=== PATIENT | male | born 1940 | race Caucasian/White ===

== ENCOUNTER 2017-09-02 09:01 | Emergency (ER) | payer MEDICARE, MEDICAID ==
[2017-09-02 09:25] VITALS: BP 135/67
--- NOTE | 2017-09-02 09:43 | UC ---
Respiratory Complaint HPI - HPI Summary HPI Summary: Patient has been treated for a Upper respiratory incfection for the past 10 days , but cough is worse, head congestion is worse , he remains afebrile but very SOB. - History of Current Complaint Chief Complaint: UCRespiratory Stated Complaint: COUGH,RESPIRATORY Time Seen by Provider: 09/02/17 09:15 Hx Obtained From: Patient Onset/Duration: Sudden Onset, Lasting Weeks - 2 Timing: Constant Severity Initially: Mild Severity Currently: Moderate Pain Intensity: 3 Character: Cough: Productive Aggravating Factors: Exertion, Deep Breaths, Recumbent Position Alleviating Factors: Nothing Associated Signs And Symptoms: Positive: Dyspnea, Wheezing, URI, Nasal Congestion, Sinus Discomfort - Risk Factors Pulmonary Embolism Risk Factors: Negative Cardiac Risk Factors: CAD Pseudomonas Risk Factors: Negative Tuberculosis Risk Factors: Negative - Allergies/Home Medications Allergies/Adverse Reactions: Allergies Allergy/AdvReac Type Severity Reaction Status Date / Time No Known Allergies Allergy Verified 09/02/17 09:25 Home Medications: Home Medications Albuterol 2.5MG/3ML (0.083%)* [Ventolin 2.5 MG/3 ML NEB.DOM*] 2.5 mg INH Q4H PRN 09/02/17 [History Confirmed 09/02/17] Benzonatate CAP* [Tessalon 100 MG CAP*] 100 mg PO TID 09/02/17 [History Confirmed 09/02/17] Cephalexin CAP* [Keflex CAP*] 500 mg PO QID 09/02/17 [History Confirmed 09/02/17 ] Ybudvbuaptcic-Paggdriccpe-Vs [Theraflu Cold & Cough] 1 liq PO Q8HR PRN 09/02/17 [History Confirmed 09/02/17] predniSONE TAB* [Deltasone TAB*] 20 mg PO Q8HR 09/02/17 [History Confirmed 09/02] PMH/Surg Hx/FS Hx/Imm Hx Previously Healthy: Yes Other History Of: Negative For: Anticoagulant Therapy - Surgical History Surgical History: Yes Surgery Procedure, Year, and Place: mitral valve repair - Family History Known Family History: Positive: Cardiac Disease - Social History Alcohol Use: Occasionally Substance Use Type: None Smoking Status (MU): Former Smoker Amount Used/How Often: 1ppd Length of Time of Smoking/Using Tobacco: 15 yrs When Did the Patient Quit Smoking/Using Tobacco: 1969 Review of Systems Constitutional: Chills, Fatigue Skin: Negative Eyes: Negative ENT: Sore Throat, Ear Ache, Nasal Discharge, Sinus Pain/Tenderness Respiratory: Shortness Of Breath, Cough Cardiovascular: Negative Gastrointestinal: Negative Genitourinary: Negative Motor: Negative Neurovascular: Negative Musculoskeletal: Myalgia Neurological: Headache Psychological: Negative Is Patient Immunocompromised?: No All Other Systems Reviewed And Are Negative: Yes Physical Exam Triage Information Reviewed: Yes Appearance: Well-Nourished, Ill-Appearing, Pain Distress Vital Signs: Initial Vital Signs Temp 98.6 F 09/02/17 09:14 Pulse 87 09/02/17 09:14 Resp 16 09/02/17 09:14 BP 135/67 09/02/17 09:14 Pulse Ox 99 09/02/17 09:14 Vital Signs Reviewed: Yes Eye Exam: Normal Eyes: Positive: Conjunctiva Inflamed ENT: Positive: Pharyngeal erythema, Nasal congestion, TMs normal, Sinus tenderness Dental Exam: Normal Neck exam: Normal Neck: Positive: Supple, Nontender, No Lymphadenopathy Respiratory: Positive: Normal breath sounds, No respiratory distress, Crackles, Rhonchi, Stridor, Inspiration Cardiovascular Exam: Normal Cardiovascular: Positive: RRR, No Murmur, Pulses Normal Abdominal Exam: Normal Abdomen Description: Positive: Nontender, No Organomegaly, Soft Bowel Sounds: Positive: Present Musculoskeletal Exam: Normal Musculoskeletal: Positive: Strength Intact, ROM Intact, No Edema Neurological Exam: Normal Neurological: Positive: Alert, Muscle Tone Normal Psychological Exam: Normal Skin Exam: Normal UC Diagnostic Evaluation - Laboratory O2 Sat by Pulse Oximetry: 99 - Radiology Xray Interpretation: No Acute Changes Radiology Interpretation Completed By: Radiologist Respiratory Course/Dx - Course Course Of Treatment: hx obtained, exam performed ,meds reviewed, chest xray obtained, negative for pneumonia - Differential Dx/Diagnosis Differential Diagnosis/HQI/PQRI: Bronchitis, CHF, Lower Resp Infection, Sinusitis Provider Diagnoses: bronchitis. SOB. Heasache Discharge - Discharge Plan Condition: Stable Disposition: HOME Patient Education Materials: Acute Bronchitis (ED) Referrals: Vern Alba MD [Primary Care Provider] - Additional Instructions: 1. Your chest xray was negative for pnuemonia 2. I have increased your dose of prednisone, due to the wheezing and coughing, take per directions on the bottle 3. I have also prescribed Albuterol I would like you to use it 3 times a day for the next 3 days and then every 4 hours as needed. 4. Continue with tylenol for pain or fever 5. Warm compresses to sinuses if you continue to have sinus pressure. 6. FOllow up with any increased shortness of breath or you develop a fever.
[2017-09-02] MEDS ORDERED: Albuterol/Ipratropium NEB.SOL* Albuterol 2.5 MG/Ipratropium 0.5 MG 3 ML INH ONE (09:52)
--- NOTE | 2017-09-02 09:54 | RAD ---
INDICATION: Cough. Short of breath COMPARISON: July 31, 2012 TECHNIQUE: PA and lateral dual-energy views were obtained. FINDINGS: Bones/Soft Tissues: There is interval sternotomy with mitral valve surgery. Cardiomediastinal: The cardiomediastinal silhouette is normal. Lungs: There are no infiltrates. Pleura: There are no pleural effusions. Other: None IMPRESSION: POSTOPERATIVE CHANGE. NO ACTIVE DISEASE.
== END 2017-09-02 10:29 | disposition home or self-care (01) ==
LOC: UCCORT 09:01
DX: J40 Bronchitis, not specified as acute or chronic (principal); R06.02 Shortness of breath; R51 Headache; Z87.891 Personal history of nicotine dependence
CPT/HCPCS: 71046; 99212; A9270-GY; G0463

== ENCOUNTER 2017-10-06 07:48 | Emergency (ER) | payer MEDICARE, MEDICAID ==
[2017-10-06 08:30] LABS: Urine Appearance Clear; Urine Blood Negative (Negative); Urine Color Yellow; Urine Ketones Negative (Negative); Urine Protein Negative (Negative); Urine Specific Gravity 1.015 (1.010-1.030); Urine Urobilinogen Negative (Negative)
[2017-10-06] MEDS ORDERED: Phenazopyridine TAB* 100 MG PO ONE (08:53)
[2017-10-06 09:18] VITALS: BP 119/79
--- NOTE | 2017-10-06 11:01 | ED ---
Brennan Douglas Stephanie, scribed for Rahul Briceno MD on 10/06/17 at 0850 . GI/ HPI - HPI Summary HPI Summary: The pt is a 77 y/o M presenting to the ED with c/o penile burning while using self-catheter that began at 19:00 on 10/05/17. The pt states the penile burning is constant but is worse with self-catheterization. The pt states a hx of UTI. He states he used 1 dose of Bactrim yesterday. - History of Current Complaint Chief Complaint: EDUrogenitalProblems Time Seen by Provider: 10/06/17 08:48 Stated Complaint: UTI-LIKE SYMPTOMS Hx Obtained From: Patient Onset/Duration: Started Days Ago - 1, Still Present Timing: Constant Current Severity: Moderate Pain Intensity: 5 Location of Pain: Other - penile Pain Characteristics: Burning Aggravating Factor(s): Nothing Alleviating Factor(s): Nothing - Allergy/Home Medications Allergies/Adverse Reactions: Allergies Allergy/AdvReac Type Severity Reaction Status Date / Time No Known Allergies Allergy Verified 10/06/17 07:53 PMH/Surg Hx/FS Hx/Imm Hx Endocrine/Hematology History: Denies: Hx Anticoagulant Therapy, Hx Diabetes, Hx Thyroid Disease Cardiovascular History: Denies: Hx Hypertension, Hx Pacemaker/ICD Respiratory History: Denies: Hx Asthma, Hx Chronic Obstructive Pulmonary Disease (COPD) History: Denies: Hx Renal Disease Neurological History: Denies: Hx Dementia, Hx Seizures Psychiatric History: Denies: Hx Substance Abuse - Surgical History Surgery Procedure, Year, and Place: mitral valve repair Infectious Disease History: No Infectious Disease History: Reports: Hx Hepatitis - Hep B 1988 Denies: Hx Human Immunodeficiency Virus (HIV), History Other Infectious Disease, Traveled Outside the [place] in Last 30 Days - Family History Known Family History: Positive: Cardiac Disease - Social History Occupation: Retired Lives: With Family Alcohol Use: Occasionally Substance Use Type: Reports: None Smoking Status (MU): Former Smoker Amount Used/How Often: 1ppd Length of Time of Smoking/Using Tobacco: 15 yrs Review of Systems Negative: Fever Positive: burning - penile All Other Systems Reviewed And Are Negative: Yes Physical Exam - Summary Physical Exam Summary: Appearance: The patient is well-nourished in no acute distress and in no acute pain. Skin: The skin is warm and dry and skin color reflects adequate perfusion. HEENT: The head is normocephalic and atraumatic. The pupils are equal and reactive. The conjunctivae are clear and without drainage. Nares are patent and without drainage. Mouth reveals moist mucous membranes and the throat is without erythema and exudate. The external ears are intact. The ear canals are patent and without drainage. The tympanic membranes are intact. Neck: the neck is supple with full range of motion and non-tender. There are no carotid bruits. There is no neck vein distension. Respiratory: Chest is non-tender. Lungs are clear to auscultation and breath sounds are symmetrical and equal. Cardiovascular: Heart is regular rate and rhythm. There is no murmur or rub auscultated. There is no peripheral edema and pulses are symmetrical and equal. Abdomen: The abdomen is soft and non-tender. There are normal bowel sounds heard in all four quadrants and there is no organomegaly palpated. Musculoskeletal: There is no back tenderness noted. Extremities are non-tender with full range of motion. There is good capillary refill. There is no peripheral edema or calf tenderness elicited. Neurological: Patient is alert and oriented to person, place and time. The patient has symmetrical motor strength in all four extremities. Cranial nerves are grossly intact. Deep tendon reflexes are symmetrical and equal in all four extremities. Psychiatric: The patient has an appropriate affect and does not exhibit any anxiety or depression. Triage Information Reviewed: Yes Vital Signs On Initial Exam: Initial Vitals Temp Pulse Resp BP Pulse Ox 97.5 F 80 16 135/88 96 10/06/17 07:50 10/06/17 07:50 10/06/17 07:50 10/06/17 07:50 10/06/17 07:50 Vital Signs Reviewed: Yes Diagnostics - Vital Signs Vital Signs Temp Pulse Resp BP Pulse Ox 10/06/17 08:12 97.4 F 10/06/17 07:50 97.5 F 80 16 135/88 96 - Laboratory Lab Results: Lab Results 10/06/17 Range/Units 08:05 Urine Color Yellow Urine Appearance Clear Urine pH 5.0 (5-9) Ur Specific Altair 1.015 (1.010-1.030) Urine Protein Negative (Negative) Urine Ketones Negative (Negative) Urine Blood Negative (Negative) Urine Nitrate Negative (Negative) Urine Bilirubin Negative (Negative) Urine Urobilinogen Negative (Negative) Ur Leukocyte Esterase Negative (Negative) Urine Glucose Negative (Negative) Lab Statement: Any lab studies that have been ordered have been reviewed, and results considered in the medical decision making process. GIGU Course/Dx - Course Course Of Treatment: Mr. Christie started to have pain with his self catheterizations yesterday and now has burning in his penis even at rest. He has a prescription for septra and took a dose last night. Today his U/A is negative but he is still symptomatic. It is possible that one dose of antibiotic has cleared his urine enough to give a false positive for the U/A. The urine is sent for C& S. I recommended that he continue the septra, we treat him symptomatically with pyridium and he F/Us with Dr. Olsen while we wait for cultures. - Diagnoses Provider Diagnoses: UTI (urinary tract infection) Discharge - Discharge Plan Condition: Stable Disposition: HOME Prescriptions: Phenazopyridine 200 mg (NF) [Pyridium 200 MG tab *] 200 mg PO TID #9 tab Patient Education Materials: Urinary Tract Infection in Men (ED) Referrals: Vern Alba MD [Primary Care Provider] - Mikhail Olsen MD [Medical Doctor] - 1 Week Additional Instructions: Follow up with Dr. Olsen in one week if symptoms do not improve. The documentation as recorded by the Brennan duffy Stephanie accurately reflects the service I personally performed and the decisions made by me, Rahul Briceno MD.
== END 2017-10-06 09:16 | disposition home or self-care (01) ==
LOC: ED 07:48
DX: N39.0 Urinary tract infection, site not specified (principal); Z87.891 Personal history of nicotine dependence
CPT/HCPCS: 81003; 87086; 99282

== ENCOUNTER 2018-08-24 09:36 | Emergency (ER) | payer MEDICARE, MEDICAID ==
[2018-08-24 10:08] VITALS: BP 129/68
--- NOTE | 2018-08-24 11:34 | UC ---
Complaint Male HPI - HPI Summary HPI Summary: Per freight car loader: "c/o dysuria x 5 days, denies other symptoms. Urologist gave him a standing prescription for bactrim to take if feels like he has a UTI, has been taking it twice a day for 5 days without improvement. " -Dr Sanchez called today to notify me of pt coming in. He has neurogenic bladder and does self cath. Called this week w/ UTI sx but was unable to leave a cx. - started on bactrim but with persistent sxs. recommends rocephin or gent, dc home w/ PO abx based on last sensitive cx in [facility] database and call Sunday for FU. -pt states that he feels slightly better, but ususally feels more improvement by this point in abxs. - History of Current Complaint Chief Complaint: UCGU Stated Complaint: URINARY Time Seen by Provider: 08/24/18 11:08 Pain Intensity: 0 - Allergies/Home Medications Allergies/Adverse Reactions: Allergies Allergy/AdvReac Type Severity Reaction Status Date / Time No Known Allergies Allergy Verified 08/24/18 10:04 PMH/Surg Hx/FS Hx/Imm Hx Previously Healthy: Yes GI/ History: Other - neurogenic bladder Other History Of: Negative For: Anticoagulant Therapy - Surgical History Surgical History: Yes Surgery Procedure, Year, and Place: mitral valve repair - Family History Known Family History: Positive: Cardiac Disease - Social History Alcohol Use: None Substance Use Type: None Smoking Status (MU): Former Smoker Amount Used/How Often: 1ppd Length of Time of Smoking/Using Tobacco: 15 yrs When Did the Patient Quit Smoking/Using Tobacco: 1968 Review of Systems All Other Systems Reviewed And Are Negative: Yes Constitutional: Positive: Negative Skin: Positive: Negative Eyes: Positive: Negative ENT: Positive: Negative Respiratory: Positive: Negative Cardiovascular: Positive: Negative Gastrointestinal: Positive: Negative Genitourinary: Positive: Dysuria Motor: Positive: Negative Neurovascular: Positive: Negative Musculoskeletal: Positive: Negative Neurological: Positive: Negative Psychological: Positive: Negative Physical Exam Triage Information Reviewed: Yes Appearance: Well-Appearing, No Pain Distress, Well-Nourished - very pelasant Vital Signs: Initial Vital Signs Temp 97.9 F 08/24/18 10:03 Pulse 79 08/24/18 10:03 Resp 15 08/24/18 10:03 BP 129/68 08/24/18 10:03 Pulse Ox 98 08/24/18 10:03 Vital Signs Reviewed: Yes Eye Exam: Normal ENT Exam: Normal Dental Exam: Normal Neck exam: Normal Neck: Positive: Supple, Nontender, No Lymphadenopathy Respiratory Exam: Normal Respiratory: Positive: Lungs clear, Normal breath sounds, No respiratory distress, No accessory muscle use Cardiovascular Exam: Normal Cardiovascular: Positive: RRR, No Murmur Abdominal Exam: Normal Abdomen Description: Positive: Soft. Negative: CVA Tenderness (R), CVA Tenderness (L), Distended, Guarding, Splenomegaly Musculoskeletal Exam: Normal Neurological Exam: Normal Psychological Exam: Normal Skin Exam: Normal Complaint Male Course/Dx - Course Course Of Treatment: -upon review of EMR record, last documented UTI was 03/23 that showed wide spread sensitivity. he denies PMHx of kidney or liver disease. he has no idea of what abx he was started on in the past. -rocephin IM here 1 gm x 1 dose. -will dc home on kelfex 500mgs 1 po QID x 10 d and FU w/ Dr Olsen on Sunday. -he does not have any systemic sx. no n/v/body aches, fever or abd pain. just urethral pain after cath. -he is evry agreeable w/ this plan. - Differential Dx/Diagnosis Differential Diagnosis/HQI/PQRI: Pyelonephritis, Urinary Tract Infection Provider Diagnosis: Urinary tract infection Discharge - Sign-Out/Discharge Documenting (check all that apply): Patient Departure All imaging exams completed and their final reports reviewed: No Studies - Discharge Plan Condition: Stable Disposition: HOME Prescriptions: cephALEXin [Keflex] 500 mg PO Q6HR 10 Days #40 capsule Patient Education Materials: Urinary Tract Infection in Men (DC) Referrals: Vern Alba MD [Primary Care Provider] - Mikhail Olsen MD [Medical Doctor] - 2 Days Additional Instructions: -Make sure to take a probiotic daily while on antibiotics to help prevent a potential complication of antibiotic use called c diff. Some well known brands that can be found OTC are florastor, align and Access MediQuip health. Make sure to complete the entire prescription unless advised otherwise by your health care provider. -Please follow up if you develop fevers, chills, body aches, nausea or vomiting prior to then. - Billing Disposition and Condition Condition: STABLE Disposition: Home
[2018-08-24] MEDS ORDERED: cefTRIAXone VIAL(*) 1,000 MG VIAL IM ONE (11:38)
[2018-08-24] MEDS ORDERED: Lidocaine 1%* 5 ML VIAL INJ ONE (11:41)
== END 2018-08-24 12:14 | disposition home or self-care (01) ==
LOC: UCCORT 09:36
DX: N39.0 Urinary tract infection, site not specified (principal); B96.20 Unspecified Escherichia coli [E. coli] as the cause of diseases classified elsewhere; Z16.11 Resistance to penicillins; Z16.29 Resistance to other single specified antibiotic; Z87.891 Personal history of nicotine dependence
CPT/HCPCS: 81003; 87077; 87086; 87186; 96372; 99212; G0463; J0696

== ENCOUNTER 2018-12-25 08:25 | Emergency (ER) | payer MEDICARE, MEDICAID ==
--- OUTSIDE RECORDS SUMMARY | 2018-12-25 08:34 | XMS REPORT | Continuity of Care Document ---
:1940 External Reference #:[id number] Author Name Mike Sanchez MD Address [address] [place] [address] [place] [address] Care Team Providers Name Role Phone Mariano Cobian MD Care Team Information Farm Operator Unavailable Vern Alba MD Primary Care Physician Unavailable Payers Date Identification Numbers Payment Provider Subscriber Effective: 2018 Policy Number: [id number] Medicare Part B Mario Christie PayID: [id number] [address] [place] [address] Advance Directives Description No Information Available Problems Active Problems Provider Date 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 Onset: 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/2018 Family History Date Family Member(s) Observation Comments General No Current Problems Social History Type Date Description Comments Sex Unknown ETOH Use Occasionally consumes alcohol Tobacco Use Start: Unknown End: Unknown Patient is a former smoker Smoking Status Reviewed: 11/27/18 Patient is a former smoker Allergies, Adverse Reactions, Alerts Description No Known Drug Allergies Medications Active Medications SIG Qnty Indications Ordering Provider Date Tobradex 1 drop right eye 10ml Mike Sanchez, 10/30/2018 0.3-0.1% four times a day MD Suspension as directed History Medications No Active Medications Unknown 10/18/2018 - 10/30/2018 Immunizations Description No Information Available Vital Signs Date Vital Result Comment 11/27/2018 9:06am Intraocular Pressure Right Eye 15 mmHg Tp 09:06 Am Intraocular Pressure Left Eye 13 mmHg Tp 11/13/2018 2:15pm Intraocular Pressure Right Eye 16 mmHg Tp 02:15 PM Intraocular Pressure Left Eye 14 mmHg 11/05/2018 11:22am Intraocular Pressure Right Eye 14 mmHg Ap 11:22 Am Intraocular Pressure Left Eye 14 mmHg Ap 11:22 Am 10/18/2018 10:06am Intraocular Pressure Right Eye 14 mmHg Intraocular Pressure Left Eye 13 mmHg tp 10:06 am Results Description No Information Available Procedures Date Code Description Status 11/04/2018 55915 Biopsy Of Conjunctiva OD Completed 10/18/2018 79700 Exam Comprehensive, New PT Completed Encounters Description No Information Available Plan of Treatment Future Appointment(s):12/11/2018 7:45 am - Mike Sanchez MD at [facility]1111/27/2018 - Mike Sanchez, MDC69.01 Malignant neoplasm of right conjunctivaComments:OD- conj healing well- no recurrence2 small round villegas plaques on temp cornea- ?recurrence- will watch closely and have low threshold for starting inferferon if no change or worse at next visittobradexbid for 5 days/qd for 5 days then d/cFollow up:2 weeks conj/cornea chk/non-dil
--- OUTSIDE RECORDS SUMMARY | 2018-12-25 08:34 | XMS REPORT | Continuity of Care Document ---
:1940 External Reference #:[id number] Author Name SalgadoDanielle kelley Care Team Providers Name Role Phone Vern Alba MD Primary Care Physician Unavailable Payers Date Identification Numbers Payment Provider Subscriber Effective: 2005 Policy Number: [id number] Medicare Mario Christie PayID: [id number] [address] [place] [address] Policy Number: [id number] Medicaid Mario Christie Group Name: 1 1 [address] PayID: [id number] [place] [address] Advance Directives Description No Information Available Problems Description No Information Family History Date Family Member(s) Observation Comments General Heart Disease Father due to CAD () Mother due to Unknown Causes () Social History Type Date Description Comments Sex Unknown Marital Status Lives With ETOH Use Occasionally consumes alcohol Recreational Drug Use Denies Drug Use Tobacco Use Start: Unknown End: Patient is a former 1 [employer] for 15 years, Unknown smoker quit 1968 Smoking Status Reviewed: 12/06/18 Patient is a former 1 [employer] for 15 years, smoker quit 1968 Exercise Type/Frequency Exercises regularly Allergies, Adverse Reactions, Alerts Description No Known Drug Allergies Medications Active Medications SIG Qnty Indications Ordering Provider Date Multivitamin Adults 1 by mouth every Unknown day Tablets Albuterol Sulfate every 4 hours as Unknown needed for 1.25mg/3ML Nebulizer cough/shortness of breath Advair Diskus 1 puff as needed Vern Alba 500-50mcg/Dose Aerosol Tobramycin-Dexamethason 1 drop in right Mike Sanchez e eye daily MD [place] 0.3-0.1% Suspension History Medications Prednisone take 2 tabs daily 30tabs Ranjith Carrillo, 10/08/2017 - 10mg Tablets DO FACC 10/11/2017 Oxycontin Unknown - 10/07/2017 Benzonatate take one capsules Unknown - 100mg every 8 hours as Unknown Capsules needed Cephalexin 1 by mouth three Unknown - 500mg Capsules times a day 10/11/2017 Levofloxacin 1 by mouth every Unknown - 750mg day 10/11/2017 Tablets Pyridium 1 as needed every Unknown - 200mg Tablets 8 hours Unknown Immunizations Description No Information Available Vital Signs Date Vital Result Comment 12/06/2018 9:18am Height 70 inches 5'10" Weight 214.00 lb Heart Rate 76 /min regular BP Systolic Sitting 122 mmHg LA Large Cuff BP Diastolic Sitting 84 mmHg LA Large Cuff BP Systolic Standing 138 mmHg LA Large Cuff BP Diastolic Standing 86 mmHg LA Large Cuff Respiratory Rate 12 /min no respiratory difficulties Pain Level 0 O2 % BldC Oximetry 96 % BMI (Body Mass Index) 30.7 kg/m2 11/28/2018 8:31am Height 70 inches 5'10" Weight 210.00 lb Heart Rate 72 /min BP Systolic Sitting 140 mmHg BP Diastolic Sitting 78 mmHg Respiratory Rate 16 /min Body Temperature 98.1 F BMI (Body Mass Index) 30.1 kg/m2 04/25/2018 11:34am Height 70 inches 5'10" Weight 200.00 lb Heart Rate 72 /min BP Systolic 130 mmHg BP Diastolic 80 mmHg Respiratory Rate 18 /min Body Temperature 98.0 F BMI (Body Mass Index) 28.7 kg/m2 10/12/2017 12:42pm Height 70 inches 5'10" Weight 207.50 lb no shoes Heart Rate 78 /min BP Systolic 128 mmHg Rue reg cuff BP Diastolic 80 mmHg Rue reg cuff BP Systolic Sitting 128 mmHg Lue reg cuff BP Diastolic Sitting 80 mmHg Lue reg cuff BP Systolic Standing 124 mmHg Lue reg cuff BP Diastolic Standing 72 mmHg Lue reg cuff Respiratory Rate 16 /min O2 % BldC Oximetry 95 % BMI (Body Mass Index) 29.8 kg/m2 06/12/2014 10:40am Height 70 inches 5'10" Weight 200.00 lb Heart Rate 73 /min BP Systolic 138 mmHg BP Diastolic 80 mmHg BMI (Body Mass Index) 28.7 kg/m2 Results Description No Information Available Procedures Date Code Description Status 12/06/2018 00333 EKG Tracing & Interpretation Completed 10/12/2017 87073 EKG Tracing & Interpretation Completed 07/31/2012 65466 ECHO Transthorasic Realtime 2D W Doppler & Color Flow Hosp Completed 07/31/2012 82652 EKG, Interpretation Only Completed Encounters Type Date Location Provider Dx Diagnosis Office Visit 12/06/2018 Cardiology Services Ranjith Carrillo, 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 Z01.810 Encounter for preprocedural cardiovascular examination Office Visit 11/28/2018 8:30a Surgical Nate Grover K40.90 [facility], PEDRO hernia, w/o obst or gangr, not spcf as recur R10.32 Left lower quadrant pain Office Visit 04/25/2018 11:15a Surgical Nate Grover K40.90 [facility], PEDRO hernia, w/o obst or gangr, not spcf as recur N50.812 Left testicular pain Office Visit 10/12/2017 1:00p [facility] Ranjith Warren R06.02 Shortness of Of Nancy Carrillo DO breath [facility] Z95.2 Presence of prosthetic heart valve Office Visit 06/12/2014 Orthopedic Jn Garcia, 840.4 Sprains & 10:15a Services Of Saba Chavez Strains Rotator Cuff (Capsule) Office Visit 07/31/2012 [facility] Corey Duval 424.0 Mitral Valve 10:03a kenn Cordero II, M.D. 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
--- OUTSIDE RECORDS SUMMARY | 2018-12-25 08:34 | XMS REPORT | Continuity of Care Document ---
:1940 External Reference #:[id number] Author Name Mike Sanchez MD Address [address] [place] [address] [place] [address] Care Team Providers Name Role Phone Mariano Cobian MD Care Team Information Accounting Manager Unavailable Vern Alba MD Primary Care Physician Unavailable Payers Date Identification Numbers Payment Provider Subscriber Effective: 2018 Policy Number: [id number] Medicare Part B Mario Christie PayID: [id number] [address] [place] [address] Policy Number: [id number] Medicaid Mario Christie Group Name: 1 1 [address] PayID: [id number] [place] [address] Advance Directives Description No Information Available Problems [...] Available Vital Signs Date Vital Result Comment 12/19/2018 8:15am Intraocular Pressure Right Eye 13 mmHg TP 08:15 Am Intraocular Pressure Left Eye 13 mmHg TP 08:15 Am 12/11/2018 7:57am Intraocular Pressure Right Eye 17 mmHg Tp 07:57 Am Intraocular Pressure Left Eye 19 mmHg 11/27/2018 9:06am Intraocular Pressure Right Eye 15 [...] Information Available Procedures Date Code Description Status 12/11/2018 48330 Scraping Of Cornea,Diagnostic For Smear And/Or Culture OD Completed 11/04/2018 31145 Biopsy Of Conjunctiva OD Completed 10/18/2018 59860 Exam Comprehensive, New PT Completed Encounters Description No Information Available Plan of Treatment 12/19/2018 - Mike Sanchez, MDC69.01 Malignant neoplasm of right conjunctivaComments:s/p corneal scraping for suspious spotsspots have resolvedawaiting pathology results tobradex bid for 5 days, qd for 5 days then d /cFollow up:1 MONTH CONJ/CORNEA CHK/NON-DIL
--- OUTSIDE RECORDS SUMMARY | 2018-12-25 08:34 | XMS REPORT | Continuity of Care Document ---
:1940 External Reference #:[id number] Author Name Mike Sanchez MD Address [address] [place] [address] [place] [address] Care Team Providers Name Role Phone Mariano Cobian MD Care Team Information Computing Machine Operator Unavailable Vern Alba MD Primary Care Physician Unavailable Payers Date Identification Numbers Payment Provider Subscriber Effective: 2018 Policy Number: [id number] Medicare Part B Mario Christie PayID: [id number] [address] [place] [address] Policy Number: [id number] Medicaid Mario Christie Group Name: 1 1 [address] PayID: [id number] [place] [address] Advance Directives Description No Information Available Problems [...] Sanchez, 10/30/2018 0.3-0.1% four times a day Suspension as directed History Medications No Active Medications Unknown 10/18/2018 - 10/30/2018 Immunizations Description No Information Available Vital Signs Date Vital Result Comment 12/11/2018 7:57am Intraocular Pressure Right Eye 17 [...] Available Procedures Date Code Description Status 12/11/2018 10687 Scraping Of Cornea,Diagnostic For Smear And/Or Culture OD Completed 11/04/2018 05878 Biopsy Of Conjunctiva OD Completed 10/18/2018 98264 Exam Comprehensive, New PT Completed Encounters Description No Information Available Plan of Treatment Future Appointment(s):12/19/2018 8:00 am - Mike Sanchez MD at [facility]/11/2018 - Mike Sanchez, MDC69.01 Malignant neoplasm of right conjunctivaComments:TDX qid ODFollow up:next week conj/corn ck, no dilate lubricate with AT often
--- OUTSIDE RECORDS SUMMARY | 2018-12-25 08:34 | XMS REPORT | Continuity of Care Document ---
:1940 External Reference #:[id number] Author Name Jenny Fernandez Care Team Providers Name Role Phone Vern Alba MD Primary Care Physician Unavailable Payers Date Identification Numbers Payment Provider Subscriber Effective: 2005 Policy Number: [id number] Medicare Mario Christie PayID: [id number] [address] [place] [address] Policy Number: [id number] Medicaid Mario Christie Group Name: 1 1 [address] PayID: [id number] [place] [address] Advance Directives Description No Information Available Problems [...] Unknown smoker quit 1968 Smoking Status Reviewed: 11/28/18 Patient is a former 1 [employer] for 15 years, smoker quit 1968 Exercise Type/Frequency Exercises regularly Allergies, Adverse Reactions, Alerts Description No Known Drug Allergies Medications Active Medications SIG Qnty Indications Ordering Provider Date Multivitamin Adults 1 by mouth every Unknown day Tablets Albuterol Sulfate every 4 hours as Unknown needed for 1.25mg/3ML Nebulizer cough/shortness of breath History Medications Prednisone take 2 tabs daily [...] Available Vital Signs Date Vital Result Comment 11/28/2018 8:31am Height 70 inches 5'10" Weight [...] Information Available Procedures Date Code Description Status 10/12/2017 64764 EKG Tracing & Interpretation Completed 07/31/2012 86019 ECHO Transthorasic Realtime 2D W Doppler & Color Flow Hosp Completed 07/31/2012 39869 EKG, Interpretation Only Completed Encounters Type Date Location Provider Dx Diagnosis Office Visit 04/[facility]/2018 [facility] Grover, K40.90 Unil inguinal 11:15a Of Nancy METZGER, FACS hernia, w/o obst or gangr, not spcf as recur N50.812 Left testicular pain Office Visit 10/12/2017 1:00p [facility] Ranjith Warren R06.02 Shortness of Of Nancy Carrillo, DO breath FACC Z95.2 Presence of prosthetic heart valve Office Visit 06/12/2014 [facility], 840.4 Sprains & 10:15a Services Of Saba Chavez Strains Rotator Cuff (Capsule) Office Visit 07/31/2012 [facility] Chetbharat 424.0 Mitral Valve 10:03a kenn Cordero II, M.D. 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
[2018-12-25 08:42] VITALS: BP 129/74
--- NOTE | 2018-12-25 09:23 | UC ---
Bite Injury/Animal HPI - HPI Summary HPI Summary: 78-year-old male comes in with a chief complaint of a tick bite on the left side of his chest. Patient knows that this morning and he was able to tear off most of the tick but did not get the whole tick. There is redness around the bite. Patient feels well otherwise. He believes it's been in there for about 2 days. 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 - Family History Known Family History: Positive: Cardiac Disease - Social History Alcohol Use: None Substance Use Type: None Smoking Status (MU): Former Smoker Amount Used/How Often: 1ppd Length of Time of Smoking/Using Tobacco: 15 yrs When Did the Patient Quit Smoking/Using Tobacco: 1968 Review of Systems All Other Systems Reviewed And Are Negative: Yes Constitutional: Positive: Negative Skin: Positive: Other - SEE HPI Eyes: Positive: Negative ENT: Positive: Negative Respiratory: Positive: Negative Cardiovascular: Positive: Negative Gastrointestinal: Positive: Negative Motor: Positive: Negative Neurovascular: Positive: Negative Musculoskeletal: Positive: Negative Neurological: Positive: Negative Psychological: Positive: Negative Is Patient Immunocompromised?: No Physical Exam Triage Information Reviewed: Yes Appearance: Well-Appearing, No Pain Distress, Well-Nourished Vital Signs: Initial Vital Signs Temp 97 F 12/25/18 08:36 Pulse 66 12/25/18 08:36 Resp 16 12/25/18 08:36 BP 129/74 12/25/18 08:36 Pulse Ox 96 12/25/18 08:36 Vital Signs Reviewed: Yes Eye Exam: Normal Eyes: Positive: Conjunctiva Clear Neck: Positive: Supple Respiratory: Positive: No respiratory distress Musculoskeletal Exam: Normal Musculoskeletal: Positive: Strength Intact, ROM Intact Neurological Exam: Normal Neurological: Positive: Alert, Muscle Tone Normal Psychological Exam: Normal Psychological: Positive: Age Appropriate Behavior Skin: Positive: Other - LEFT CHEST 2CM ERYTHEMA WITH A PART OF A TICK STILL IN THE SKIN WHICH I REMOVED WITH A TICK TWISTER. NO BULLS EYE RASH Bite Injury Course/Dx - Course Course Of Treatment: NO BULLS EYE RASH THEREFORE, DOXY 200MG PO X 1. WILL GET RECHECKED IF BULLS EYE RASH OR SX OF LYME - Differential Dx/Diagnosis Provider Diagnosis: Tick bite of chest wall Discharge - Sign-Out/Discharge Documenting (check all that apply): Patient Departure All imaging exams completed and their final reports reviewed: No Studies - Discharge Plan Condition: Stable Disposition: HOME Prescriptions: DOXYcycline CAP(*) [DOXYcycline 100MG CAP(*)] 200 mg PO ONCE #2 cap Patient Education Materials: Tick Bite (ED) Referrals: Vern Alba MD [Primary Care Provider] - Additional Instructions: FOLLOW UP WITH YOUR DOCTOR IF NOT COMPLETELY IMPROVED. GET RECHECKED SOONER IF YOUR CONDITION WORSENS; BULLS EYE RASH, SIGNS OF LYME DISEASE OR ANY QUESTIONS OR CONCERNS. - Billing Disposition and Condition Condition: STABLE Disposition: Home
== END 2018-12-25 09:27 | disposition home or self-care (01) ==
LOC: UCCORT 08:25
DX: S20.362A Insect bite (nonvenomous) of left front wall of thorax, initial encounter (principal); Z87.891 Personal history of nicotine dependence; W57.XXXA Bitten or stung by nonvenomous insect and other nonvenomous arthropods, initial encounter; Y92.9 Unspecified place or not applicable
CPT/HCPCS: 99212; G0463

== ENCOUNTER → 2019-01-21 11:04 | Day surgery (SDC) | payer MEDICARE, MEDICAID ==
--- NOTE | 2019-01-08 10:41 | HP ---
Amended report to enter cosigning physician. CC: Dr. Grover; Dr. Alba; Dr. Olsen* PREOPERATIVE HISTORY AND PHYSICAL: DATE OF PREOPERATIVE HISTORY AND PHYSICAL EXAMINATION: 01/07/19. This patient is scheduled for same-day surgery admission by Dr. Grover on 01/21/19. ATTENDING SURGEON: Dr. Nate Grover* (dictated by Carito Zarco NP). CHIEF COMPLAINT: Right inguinal hernia and left groin pain. HISTORY OF PRESENT ILLNESS: The patient is a 78-year-old male with a known right inguinal hernia, seen in our office in April 2018 and again on by Dr. Grover. He returns for consideration of surgery for the right inguinal hernia and he also has persistent left groin pain radiating down into the thigh and testicle. He was to proceed with laparoscopic right inguinal hernia repair with mesh and exploration of the left groin in the fall, but saw Dr. Olsen and was treated for epididymitis and did not return to schedule surgery at that time. He continues to have pain in the left groin radiating down into the thigh. There is no mass or bulge evident to the patient. No GI symptoms. He does self catheterize due to neurogenic bladder and recently saw Dr. Olsen for routine followup including cystoscopy and was not felt to have any new issues. Therefore Dr. Grover has recommended proceeding with laparoscopic right inguinal hernia repair with mesh and exploration of the left groin with possible repair of the left inguinal hernia if found. Dr. Grover discussed the nature of the surgical procedure, the rational for the procedure, the relevant risks and benefits, and today I reviewed the typical postoperative care and recovery. The patient has had a chance to ask questions and stated that he understands the information and is satisfied with the answers given to his questions. He will sign surgical consent on the day of surgery. PAST MEDICAL HISTORY: Neurogenic bladder; mitral valve disease with open mitral valve repair in 2009; asthma; former smoker; and GERD. PAST SURGICAL HISTORY: Right eye surgery for ocular cancer in 2019 in [place] ; open mitral valve repair at [facility] in 2009. MEDICATIONS: 1. Multivitamin 1 tablet p.o. daily. 2. Albuterol 1.25 mg in 3 mL every 4 hours p.r.n. cough or shortness of breath. 3. Advair Diskus 500-50 mcg per dose one puff daily as needed. 4. Tobramycin-dexamethasone 0.3-0.1% one drop in right eye daily. ALLERGIES: No known drug allergies. FAMILY HISTORY: Positive for heart disease. Father due to coronary artery disease. Mother due to unknown causes. No known anesthesia complications, bleeding tendencies or clotting disorders. SOCIAL HISTORY: He is ; he quit smoking in 1968; he occasionally drinks alcohol and denies use of other substances. REVIEW OF SYSTEMS: Constitutional: No fevers, chills, excessive fatigue, or weight loss. Endocrine: No diabetes or thyroid disease. Hematologic: No easy bruising or bleeding. No history of blood transfusions. Respiratory: No dyspnea on exertion. He remains active with gardening and wood chopping. No chronic cough. No recent asthma flare ups. Cardiovascular: No anginal chest pain, palpitations, or edema; he was cleared by Dr. Carrillo from Cardiology to proceed with surgery. Please see the consultation note from Dr. Carrillo dated 10/22; the patient also had an echocardiogram on 12/17/18, which revealed ejection fraction 55% to 60% and that report is included as well. Gastrointestinal: No nausea, vomiting, diarrhea, GI bleeding, or constipation. No change in bowel habits. Genitourinary: He has a neurogenic bladder and self-catheterizes 4 to 5 times a day and is unable to urinate on his own. He denies any hematuria or painful catheterization. Musculoskeletal: No back or joint pain. Integumentary: No chronic rashes or skin changes. Neurologic: No blurred vision or areas of focal weakness or numbness. General: No history of deep vein thrombosis or pulmonary embolism. No previous anesthesia complications. No previous blood transfusions. PHYSICAL EXAMINATION GENERAL SURVEY: The patient is a 78-year-old male, over weight, well developed , in no acute distress. VITAL SIGNS: Height 70 inches, weight 214 pounds, body mass index 30.7. Blood pressure 130/80, pulse 72 and regular, respiratory rate 18, temperature 98.6, tympanic. HEENT: Benign. NECK: Supple. No cervical lymphadenopathy. No carotid bruits. BACK: No CVA tenderness. LUNGS: Breath sounds bilaterally clear and equal. HEART: Regular rate and rhythm. No murmurs or rubs appreciated. Central sternotomy scar well healed. ABDOMEN: Active bowel sounds. Well-healed surgical scars. Soft, nondistended , and nontender throughout. No obvious masses or organomegaly. Inguinal exam done by Dr. Grover. GENITALIA: Bilateral descended testis, reducible right inguinal hernia. No obvious left inguinal hernia upon Valsalva. RECTAL EXAM: Deferred. EXTREMITIES: Warm and well-perfused without edema. NEUROLOGIC: Alert and oriented x3, steady gait. SKIN: Warm, dry, and intact. IMPRESSION: Right inguinal hernia, left groin and thigh pain. PLAN: Same-day surgery admission to Dr. Grover' service on 01/21/19, for laparoscopic right inguinal hernia repair with mesh and exploration of left groin. ADDENDUM TO HISTORY AND PHYSICAL: ADDENDUM: ABDOMEN: He has a small umbilical hernia that is palpable when the patient coughs and is nontender. NAEEM ZARCO NP [id number]/CPS #: [id number]/CPS #: [id number] KAI
--- NOTE | 2019-01-08 10:50 | HP ---
HISTORY AND PHYSICAL: ADDENDUM: ABDOMEN: He has a small umbilical hernia that is palpable when the patient coughs and is nontender. NAEEM ZARCO, CONSTRUCTION ELECTRICIAN [id number]/[facility] #: [id number]
[~2019-01-21 11:04] MED LIST: Acetaminophen TAB* 325 MG ONE; Acetaminophen TAB* 325 MG PO ONE; Acetaminophen TAB* 325 MG PO PRN; Buffered Lidocaine 1% SYRIN* 1 ML/SYRINGE INTRADERM ONE; Bupivacaine 0.25% EPI 200,000* 30 ML SDV ONE; Dexamethasone IV* 4 MG/ML 1 ML (4 MG) ONE; DiMENhydriNATE IV* 50 MG/ML VIAL IV PUSH PRN; EPHEDrine (Pressors)* 50 MG/ML VIAL ONE; Famotidine IV* 10 MG/ML 2 ML (20 mg) ONE; Glycopyrrolate IV* 0.2 MG/ML 1 ML VIAL ONE; HYDROcodone/ACETAMIN 5-325 MG* 1 TAB ONE; HYDROcodone/ACETAMIN 5-325 MG* 1 TAB PO PRN; Heparin VIAL(*) 5000 UNITS/ML VIAL (FIVE THOUSAND) ONE; Ketorolac INJ* 30 MG/ML 1 ML VIAL ONE; Lactated Ringers 1000 ML Bag* 1,000 ML IV SCH; Levalbuterol 0.63MG/3ML NEB* UNIT OF USE INH PRN; Lidocaine 2% PF * 5 ML VIAL ONE; Midazolam* 1 MG/ML 2 ML VIAL (2 MG) ONE; Naloxone* 0.4 MG/ML 1 ML VIAL IV PRN; Neostigmine Methylsulfate* 3 MG/3 ML SYRINGE ONE; Ondansetron INJ* 2 MG/ML VIAL IV PRN; Ondansetron INJ* 2 MG/ML VIAL ONE; PROCHLORPERAZINE INJ 5 MG/ML 2 ML VIAL IV PRN; Propofol* 10 MG/ML 20 ML BTL ONE; Rocuronium* 10 MG/ML VIAL ONE; ceFAZolin 2 GM in NS PREMIX(*) 2 GM/100 ML BAG IVPB ONE; diPHENhydraMINE IV* 50 MG/ML 1 ml VIAL (BENADRYL) IV PRN; fentaNYL* 50 MCG/ML 2 ML VIAL (100 MCG VIAL) ONE
[2019-01-21] MEDS: fentaNYL* 50 MCG/ML 2 ML VIAL (100 MCG VIAL) IV PRN ×2 (17:15→17:53)
[2019-01-21 18:58] VITALS: BP 126/81
--- NOTE | 2019-01-21 21:45 | OP ---
CC: Vern Alba MD; Rio Noyola MD* OPERATIVE REPORT: DATE OF OPERATION: 01/21/19 - [facility] DATE OF : 40 SURGEON: Nate Grover MD GUM MACHINE FILLER: Selin Hayward NP ANESTHESIOLOGISTS: Dr. Ramirez and Dr. Jolley. ANESTHESIA: General endotracheal. PRE-OP DIAGNOSES: Right inguinal hernia and left groin pain. POST-OP DIAGNOSES: Indirect right inguinal hernia, left femoral hernia, and umbilical hernia. OPERATIVE PROCEDURE: Laparoscopic preperitoneal repair of right inguinal hernia , left femoral hernia, and open repair of umbilical hernia. ESTIMATED BLOOD LOSS: Minimal. IV FLUIDS: Crystalloid. SPECIMEN: None. DRAINS: None. COMPLICATIONS: None. COUNTS: The instruments, needle and sponge counts were correct. DESCRIPTION OF PROCEDURE: The patient was brought to the operating room and placed on the table supine. Sequential compression devices were placed on both lower extremities. General anesthesia was administered. Martinez catheter was placed. The abdomen was prepped and draped in usual sterile fashion. He received appropriate intravenous antibiotics. A time-out was performed. Local anesthetic was infiltrated in the infraumbilical position and all the incision sites prior to making incision. A curvilinear infraumbilical incision was created. Subcutaneous tissues were divided using cautery and blunt dissection and the anterior rectus fascia was identified. This was incised transversely to the left of midline and then the preperitoneal balloon dissector was placed down to pubis symphysis and insufflated under direct visualization. The balloon dissector was removed and replaced with a 12-mm blunt port and then carbon dioxide was insufflated into the preperitoneal space to a pressure of 12 mmHg. Under direct visualization, two 5-mm trocars were placed along the midline. Dissection proceeded on the right side from the midline extending out laterally. The inferior epigastric vessels were identified and preserved anteriorly. The direct space did not reveal any hernia and the patient was noted to have an indirect inguinal hernia. The sac was dissected off of the cord structures, which were preserved. The sac was inadvertently entered and controlled with clip placement. Dissection proceeded lateral to the anterior superior iliac spine. Dissection then proceeded on the left side from the midline and dissection proceeded laterally as previously described. The inferior epigastric vessels were preserved anteriorly. There was no direct inguinal hernia. There appeared to be fatty mass protruding into the femoral space and there was a hernia sac along the cord, which was dissected free from the cord. Again, this was partially torn and controlled, and closed with clips. The fatty mass from within the femoral hernia space was reduced revealing a femoral hernia. Repair was then preformed with the Bard 3Dmax mesh using a large size mesh for the left side and covering the direct, indirect, and femoral spaces. The mesh was secured with a single CapSure tack at the pubic tubercle. The procedure was repeated on the right side using a right-sided large 3Dmax mesh and this was again positioned to cover direct, indirect, and femoral spaces and again secured with a single tack of the tubercle. Subsequently, the ports were removed. Carbon dioxide was released. Due to the fact that patient had gas within the abdominal cavity and he had an umbilical hernia, decision was made to enter the abdominal cavity through the umbilical hernia. The umbilical stalk was dissected off the anterior abdominal wall. Sac was reduced from the umbilical hernia and then the peritoneum was entered. A 12-mm blunt port was placed within the peritoneal cavity and carbon dioxide was insufflated to a pressure of 12 mmHg. Inspection in the groins was performed to reveal that there was good coverage of each mesh without evidence of exposure. Having assured this, the carbon dioxide was released and the port was removed. The umbilical hernia defect was dissected circumferentially to healthy fascia. The defect was approximately 2 cm that was closed with interrupted [id number] of 0 Ethibond sure to complete the repair. The umbilical stalk was reapproximated, the anterior fascia with 3-0 Vicryl, and then skin was closed with 4-0 Monocryl in all the sites. Steri-Strips were applied with dressings. The patient tolerated the procedure well, was extubated , and transferred to Recovery in stable condition. [id number]/[facility] #: [id number] [address] HOSPITALAmanda
== END | disposition home or self-care (01) ==
LOC: OR 11:04
PROVIDERS: ATTEND Surgery
PROC: 0YU84JZ Supplement Left Femoral Region with Synthetic Substitute, Percutaneous Endoscopic Approach (ICD-10-PCS; principal; 2019-01-21 13:30)
DX: K40.90 Unilateral inguinal hernia, without obstruction or gangrene, not specified as recurrent (principal); K41.90 Unilateral femoral hernia, without obstruction or gangrene, not specified as recurrent; K42.9 Umbilical hernia without obstruction or gangrene; N31.9 Neuromuscular dysfunction of bladder, unspecified; I05.9 Rheumatic mitral valve disease, unspecified; J45.909 Unspecified asthma, uncomplicated; K21.9 Gastro-esophageal reflux disease without esophagitis; Z87.891 Personal history of nicotine dependence
CPT/HCPCS: A9270-GY; C1781; J0690; J1100; J1644; J1885; J2250; J2405; J2704; J2710; J3010

== ENCOUNTER 2019-03-21 14:43 | Emergency (ER) | payer MEDICARE, MEDICAID ==
--- OUTSIDE RECORDS SUMMARY | 2019-03-21 15:25 | XMS REPORT | Continuity of Care Document ---
:1940 External Reference #:[id number] Author Name Nate Grover MD, FACS (transmitted by agent of provider Jenny Fernandez) Address [address] [facility] [address] [place] [address] Care Team Providers Name Role Phone Vern Alba MD - Family Medicine Care Team Information Internet Marketing Coordinator [phone] Problems Description No Information Available Social History Type Date Description Comments Sex Unknown ETOH Use Occasionally consumes alcohol Recreational Drug Use Denies Drug Use Tobacco Use Start: Unknown End: Patient is a former 1 [employer] for 15 years, Unknown smoker quit 1968 Smoking Status Reviewed: 03/21/19 Patient is a former 1 PPD for 15 years, smoker quit 1968 Exercise Type/Frequency Exercises regularly Allergies, Adverse Reactions, Alerts Description No Known Drug Allergies Medications Active Medications SIG Qnty Indications Ordering Provider Date Multivitamin Adults 1 by mouth every Unknown day Tablets Albuterol Sulfate every 4 hours as Unknown needed for 1.25mg/3ML Nebulizer cough/shortness of breath Advair Diskus 1 puff daily as Vern Alba, needed 500-50mcg/Dose Aerosol Tobramycin-Dexamethason 1 drop in right Mike Sanchez e eye daily MD [place] 0.3-0.1% Suspension History Medications Hydrocodone 1 tab po 8tabs Carito B. 01/07/2019 - Bitartrate/Acetaminophen q6h prn Eckenrode, [employer] ATTENDANT Unknown 5-325mg Tablets pain Immunizations Description No Information Available Vital Signs Date Vital Result Comment 03/21/2019 1:30pm Heart Rate 76 /min BP Systolic 132 mmHg BP Diastolic 72 mmHg Respiratory Rate 16 /min Body Temperature 102.1 F 01/29/2019 1:11pm Heart Rate 72 /min BP Systolic 128 mmHg BP Diastolic 80 mmHg Respiratory Rate 16 /min Body Temperature 96.8 F Results Description No Information Available Procedures Date Code Description Status 01/21/2019 23743 Laparoscopy, Surgical Repair Initial Inguinal Hernia Completed 01/21/2019 02536 Laparoscopy, Surgical Repair Initial Inguinal Hernia Completed 12/17/2018 18192 ECHO Transthoracic, Real-Time 2D With Doppler And Color Completed Flow 12/06/2018 27972 EKG Tracing & Interpretation Completed Medical Devices Description No Information Available Encounters Type Date Location Provider Dx Diagnosis Office Visit 12/06/2018 Cardiology Services Ranjith Carrillo, Z95.2 Presence of 9:20a Of [facility] AT [facility] prosthetic heart valve Z01.810 Encounter for preprocedural cardiovascular examination K46.9 Unspecified abdominal hernia without obstruction or gangrene Office Visit 11/28/2018 8:30a Surgical Nate Grover, K40.90 [facility], FACS hernia, w/o obst or gangr, not spcf as recur R10.32 Left lower quadrant pain Assessments Date Code Description Provider 03/21/2019 N50.812 Left testicular pain Nate Grover MD, FACS 01/29/2019 K40.90 Unilateral inguinal hernia, without Carito B. Eckenrode , [employer] ATTENDANT obstruction or gangrene, 01/29/2019 K41.30 Unilateral femoral hernia, with Carito B. Eckenrode, [employer]ATION ATTENDANT obstruction, without gangren 01/29/2019 K42.9 Umbilical hernia without obstruction or Carito B. Eckenrode, [employer] SERVICE [employer]ATION ATTENDANT gangrene 01/29/2019 Z48.01 Encounter for change or removal of Carito B. Eckenrode , [employer] SERVICE STATION ATTENDANT surgical wound dressing 01/21/2019 K40.90 Unil inguinal hernia, w/o obst or Carito B. Eckenrode, AUT[employer] SERVICE STATION ATTENDANT gangr, not spcf as recur 01/21/2019 K40.90 Unil inguinal hernia, w/o obst or Nate Grover MD, FACS gangr, not spcf as recur 01/21/2019 K41.30 Unil femoral hernia, w obst, w/o Nate Grover MD, FACS gangrene, not spcf as recur 01/21/2019 K41.30 Unil femoral hernia, w obst, w/o Carito Alla Hayward, [employer] SERVICE [employer]ATION ATTENDANT gangrene, not spcf as recur 01/21/2019 K42.9 Umbilical hernia without obstruction or Nate Grover MD, FACS gangrene 01/21/2019 K42.9 Umbilical hernia without obstruction or Carito Hayward, AUT[employer] SERVICE STATION ATTENDANT gangrene 01/07/2019 K40.90 Unilateral inguinal hernia, without Carito Hayward , [employer]ICE [employer]ATION ATTENDANT obstruction or gangrene, 01/07/2019 Z01.818 Encounter for other preprocedural Carito Hayward , [employer]ICE [employer]ATION ATTENDANT examination 12/18/2018 K40.90 Unilateral inguinal hernia, without Nate Grover MD, FACS obstruction or gangrene, 12/18/2018 R10.32 Left lower quadrant pain Nate Grover MD, FACS 12/17/2018 Z95.2 Presence of prosthetic heart valve Ranjith Carrillo DO FAC 12/17/2018 Z95.2 Presence of prosthetic heart valve Traveling ECHO 2 12/06/2018 Z95.2 Presence of prosthetic heart valve Ranjith Carrillo DO FAC 12/06/2018 Z01.810 Encounter for preprocedural Ranjith Carrillo DO [facility] cardiovascular examination 12/06/2018 K46.9 Unspecified abdominal hernia without Ranjith Carrillo DO FACSol obstruction or gangrene 11/28/2018 K40.90 Unilateral inguinal hernia, without Nate Grover MD, FACS obstruction or gangrene, 11/28/2018 R10.32 Left lower quadrant pain Nate Grover MD, FACS Plan of Treatment No Information Available Functional Status Description No Information Available Mental Status Description No Information Available Referrals Refer to Dr Reason for Referral Status Appt Date Ranjith Carrillo DO, FAC Closed 12/06/[address] [place] [id number] [phone]
[2019-03-21 15:44] LABS: ABS Basophils 0.1 10^3/ul (0-0.2); ABS Lymphocytes 0.9 10^3/ul (1.0-4.8); ABS Monocytes 0.9 10^3/ul (0-0.8); ABS Neutrophils 10.4 10^3/ul (1.5-7.7); Eosinophil % 0.1 %; Hematocrit 45 % (42-52); Hemoglobin 15.5 g/dL (14.0-18.0); Lymphocyte % 7.5 %; Mean Corpuscular HGB Conc 34 g/dL (31-36); Mean Corpuscular Hemoglobin 31 pg (27-31); Mean Corpuscular Volume 90 fL (80-94); Mean Platelet Volume 8.6 fL (7.4-10.4); Platelet Count 196 10^3/uL (150-450); Red Cell Distribution Width 13 % (10-15); White Blood Count 12.3 10^3/uL (3.5-10.8)
[2019-03-21 16:19] LABS: Albumin 4.2 g/dL (3.2-5.2); Albumin/Globulin Ratio 1.3 (1-3); BUN/Creatinine Ratio 20.3 (8-20); C Reactive Protein 88.98 mg/L (<8.01); Calcium 9.8 mg/dL (8.6-10.3); EGFR African American 72.1 (>60); EGFR Non-African American 59.5 (>60); Globulin 3.3 g/dL (2-4); Potassium 4.1 mmol/L (3.5-5.0); Total Bilirubin 0.9 mg/dL (0.2-1.0); Total Protein 7.5 g/dL (6.4-8.9)
[2019-03-21] MEDS ORDERED: NS 0.9% 1000 ML** 1,000 ML IV ONE (18:20)
[2019-03-21] MEDS ORDERED: Ciprofloxacin 400MG IVPREMIX(* 400 MG/200 ML BAG IVPB ONE (18:21)
--- NOTE | 2019-03-21 18:41 | ED ---
Abdominal Pain/Male - HPI Summary HPI Summary: Pt is a 79 y/o M presenting to the ED with a chief complaint of L-sided flank pain initially onset yesterday that radiates to his back. He states he had a herniorrhaphy in January of 2019, and he thought he ripped the mesh, so he called Dr. Grover, who sent him to Dr. Olsen, who did a urine test that came back clear, but he sent the pt here anyway d/t the pts pain and fever. - History of Current Complaint Chief Complaint: EDFlankPain Stated Complaint: TESTICULAR PAIN/POSS UTI/FEVER PER PT Time Seen by Provider: 03/21/19 18:18 Hx Obtained From: Patient Onset/Duration: Gradual Onset, Lasting Days, Still Present Timing: Constant, Lasting Days Severity Initially: Mild Severity Currently: None Pain Intensity: 0 Pain Scale Used: 0-10 Numeric Location: Flank - L Radiates: Yes Radiates to: Back Aggravating Factor(s): Nothing Alleviating Factor(s): Nothing Associated Signs And Symptoms: Positive: Fever - Allergies/Home Medications Allergies/Adverse Reactions: Allergies Allergy/AdvReac Type Severity Reaction Status Date / Time No Known Allergies Allergy Verified 03/21/19 14:49 PMH/Surg Hx/FS Hx/Imm Hx Previously Healthy: Yes Endocrine/Hematology History: Denies: Hx Anticoagulant Therapy, Hx Diabetes, Hx Thyroid Disease Cardiovascular History: Reports: Hx Valvular Heart Disease - mitral valve surgery Denies: Hx Hypertension, Hx Pacemaker/ICD Respiratory History: Denies: Hx Asthma, Hx Chronic Obstructive Pulmonary Disease (COPD), Other Respiratory Problems/Disorders GI History: Denies: Other GI Disorders History: Denies: Hx Renal Disease Musculoskeletal History: Reports: Hx Arthritis - back, hips Denies: Other Musculoskeletal History Sensory History: Reports: Hx Contacts or Glasses - redaing glasses Denies: Hx Hearing Aid Opthamlomology History: Reports: Hx Contacts or Glasses - redaing glasses Neurological History: Denies: Hx Dementia, Hx Seizures, Other Neuro Impairments/Disorders Psychiatric History: Denies: Hx Substance Abuse - Cancer History Cancer Type, 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 right hand fx, 1994 Hx Anesthesia Reactions: No Infectious Disease History: No Infectious Disease History: Reports: Hx Hepatitis - Hep B 1988 Denies: Hx Human Immunodeficiency Virus (HIV), History Other Infectious Disease, Traveled Outside the [place] in Last 30 Days - Family History Known Family History: Positive: Cardiac Disease - Social History Alcohol Use: Rare Alcohol Amount: social Hx Substance Use: No Substance Use Type: Reports: None Hx Tobacco Use: Yes Smoking Status (MU): Former Smoker Amount Used/How Often: 1ppd Length of Time of Smoking/Using Tobacco: 15 yrs Review of Systems Positive: Fever Positive: Abdominal Pain - L flank Positive: Myalgia - back pain All Other Systems Reviewed And Are Negative: Yes Physical Exam - Summary Physical Exam Summary: Appearance: The patient is well-nourished in no acute distress and in no acute pain. Skin: The skin is warm and dry and skin color reflects adequate perfusion. HEENT: The head is normocephalic and atraumatic. The pupils are equal and reactive. The conjunctivae are clear and without drainage. Nares are patent and without drainage. Mouth reveals moist mucous membranes and the throat is without erythema and exudate. The external ears are intact. The ear canals are patent and without drainage. The tympanic membranes are intact. Neck: The neck is supple with full range of motion and non-tender. There are no carotid bruits. There is no neck vein distension. Respiratory: Chest is non-tender. Lungs are clear to auscultation and breath sounds are symmetrical and equal. Cardiovascular: Heart is regular rate and rhythm. There is no murmur or rub auscultated. There is no peripheral edema and pulses are symmetrical and equal. Abdomen: The abdomen is soft and there is mild LLQ tenderness. There are normal bowel sounds heard in all four quadrants and there is no organomegaly palpated. Musculoskeletal: There is mild CVA tenderness. Extremities are non-tender with full range of motion. There is good capillary refill. There is no peripheral edema or calf tenderness elicited. Neurological: Patient is alert and oriented to person, place and time. The patient has symmetrical motor strength in all four extremities. Cranial nerves are grossly intact. Deep tendon reflexes are symmetrical and equal in all four extremities. Psychiatric: The patient has an appropriate affect and does not exhibit any anxiety or depression. Triage Information Reviewed: Yes Vital Signs On Initial Exam: Initial Vitals Temp Pulse Resp BP Pulse Ox 102.7 F 92 16 155/101 95 03/21/19 14:44 03/21/19 14:44 03/21/19 14:44 03/21/19 14:44 03/21/19 14:44 Vital Signs Reviewed: Yes Diagnostics - Vital Signs Vital Signs Temp Pulse Resp BP Pulse Ox 03/21/19 17:00 102.7 F 93 16 129/69 94 03/21/19 14:44 102.7 F 92 16 155/101 95 - Laboratory Lab Results: Lab Results 03/21/19 03/21/19 03/21/19 Range/Units 15:35 15:35 15:35 WBC 12.3 H (3.5-10.8) 10^3/uL RBC 5.00 (4.18-5.48) 10^6 /uL Hgb 15.5 (14.0-18.0) g/dL Hct 45 (42-52) % MCV 90 (80-94) fL MCH 31 (27-31) pg MCHC 34 (31-36) g/dL RDW 13 (10-15) % Plt Count 196 (150-450) 10^3/uL MPV 8.6 (7.4-10.4) fL Neut % (Auto) 84.2 % Lymph % (Auto) 7.5 % Glynn % (Auto) 7.5 % Eos % (Auto) 0.1 % Baso % (Auto) 0.7 % Absolute Neuts (auto) 10.4 H (1.5-7.7) 10^3/ul Absolute Lymphs (auto) 0.9 L (1.0-4.8) 10^3/ul Absolute Monos (auto) 0.9 H (0-0.8) 10^3/ul Absolute Eos (auto) 0.0 (0-0.6) 10^3/ul Absolute Basos (auto) 0.1 (0-0.2) 10^3/ul Absolute Nucleated RBC 0.0 10^3/ul Nucleated RBC % 0.0 Sodium 134 L (135-145) mmol/L Potassium 4.1 (3.5-5.0) mmol/L Chloride 101 (101-111) mmol/L Carbon Dioxide 23 (22-32) mmol/L Anion Gap 10 (2-11) mmol/L BUN 24 (6-24) mg/dL Creatinine 1.18 H (0.67-1.17) mg/dL Est GFR ( Amer) 72.1 (>60) Est GFR (Non-Af Amer) 59.5 (>60) BUN/Creatinine Ratio 20.3 H (8-20) Glucose 111 H (70-100) mg/dL Lactic Acid 1.0 (0.5-2.0) mmol/L Calcium 9.8 (8.6-10.3) mg/dL Total Bilirubin 0.90 (0.2-1.0) mg/dL AST 23 (13-39) U/L ALT 18 (7-52) U/L Alkaline Phosphatase 81 (34-104) U/L C-Reactive Protein 88.98 H (<8.01) mg/L Total Protein 7.5 (6.4-8.9) g/dL Albumin 4.2 (3.2-5.2) g/dL Globulin 3.3 (2-4) g/dL Albumin/Globulin Ratio 1.3 (1-3) Result Diagrams: 03/21/19 15:35 03/21/19 15:35 Lab Statement: Any lab studies that have been ordered have been reviewed, and results considered in the medical decision making process. - CT CT a/p CT Interpretation Completed By: Radiologist Summary of CT Findings: No renal calculi or obstructive uropathy. Small bilateral renal cysts. Scattered diverticula without evidence of diverticulitis. Mild to moderate prostatic enlargement. Moderate DJD of left hip. ED physician has reviewed this report. Abdominal Pain Male Course/Dx - Course Course Of Treatment: Mr. Christie presented with left flank pain and a fever. He was nontoxic in appearance. CT scan revealed no obstructive pathology. Labs revealed a mild leukocytosis and a UA suggestive of infection. He was given IV Cipro and fluids here and discharged with a prescription. - Diagnoses Provider Diagnoses: Pyelonephritis Discharge - Sign-Out/Discharge Documenting (check all that apply): Patient Departure Patient Received Moderate/Deep Sedation with Procedure: No - Discharge Plan Condition: Stable Disposition: HOME Prescriptions: Ciprofloxacin TAB* [Cipro Tab*] 500 mg PO BID #20 tab Patient Education Materials: Kidney Infection (ED) Referrals: Vern Alba MD [Primary Care Provider] - Additional Instructions: Please follow up with your primary care provider within 2-3 days. Return to the emergency department with any new or worsening symptoms. - Billing Disposition and Condition Condition: STABLE Disposition: Home - Attestation Statements Document Initiated by Olgaibe: Yes Documenting Scribe: Kalie Steele Provider For Whom Olgaibe is Documenting (Include Credential): Rahul Briceno MD. Scribe Attestation: Kalie Douglas, scribed for Rahul Briceno MD. on 03/21/19 at 2140. Scribe Documentation Reviewed: Yes Provider Attestation: The documentation as recorded by the scribe, Kalie Steele accurately reflects the service I personally performed and the decisions made by me, Rahul Briceno MD. Status of Scribe Document: Viewed
[2019-03-21 18:56] LABS: Urine Appearance Cloudy; Urine Bacteria Absent (Absent); Urine Bilirubin Negative (Negative); Urine Blood Negative (Negative); Urine Color Amber; Urine Glucose Negative (Negative); Urine Ketones Trace (Negative); Urine Nitrite Negative (Negative); Urine Protein Negative (Negative); Urine Red Blood Cell 1+(3-5/hpf) (Absent); Urine Specific Gravity 1.024 (1.010-1.030); Urine Urobilinogen Negative (Negative); Urine White Blood Cell 3+(>20/hpf) (Absent)
[2019-03-21 20:16] VITALS: BP 111/66
== END 2019-03-23 20:30 | disposition home or self-care (01) ==
LOC: ED 14:43
DX: N10 Acute pyelonephritis (principal); N28.1 Cyst of kidney, acquired; K57.90 Diverticulosis of intestine, part unspecified, without perforation or abscess without bleeding; N40.0 Benign prostatic hyperplasia without lower urinary tract symptoms; M16.12 Unilateral primary osteoarthritis, left hip; R50.9 Fever, unspecified; Z95.2 Presence of prosthetic heart valve; Z98.890 Other specified postprocedural states; Z87.891 Personal history of nicotine dependence
CPT/HCPCS: 36415; 74176; 80053; 81003; 81015; 83605; 85025; 86140; 87040; 87086; 96361; 96365; 99283; J0744

== ENCOUNTER 2019-05-18 15:02 | Emergency (ER) | payer MEDICARE, MEDICAID ==
--- OUTSIDE RECORDS SUMMARY | 2019-05-18 15:09 | XMS REPORT | Continuity of Care Document ---
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 Description No Information Available Social History Type Date Description Comments Sex Unknown ETOH Use Occasionally consumes alcohol Recreational Drug Use Denies Drug Use Tobacco Use Start: Unknown End: Patient is a former 1 PPD for 15 years, Unknown smoker quit 1968 Smoking Status Reviewed: 05/12/19 Patient is a former 1 PPD for 15 years, smoker quit 1968 Exercise Type/Frequency Exercises regularly Allergies, Adverse Reactions, Alerts Description No Known Drug Allergies Medications Active Medications SIG Qnty Indications Ordering Provider Date Multivitamin Adults 1 by mouth every Unknown day Tablets Advair Diskus 1 puff daily as Vern Alba, needed 500-50mcg/Dose Aerosol Tobramycin-Dexamethason 1 drop in right Mike Sanchez e eye daily MD [place] 0.3-0.1% Suspension History Medications Hydrocodone 1 tab po 8tabs Carito B. 01/07/2019 - Bitartrate/Acetaminophen q6h prn Eckenrode, DIESEL SERVICE JOURNEYMAN Unknown 5-325mg Tablets pain Immunizations Description No Information Available Vital Signs Date Vital Result Comment 05/12/2019 8:58am Heart Rate 72 /min BP Systolic 122 mmHg BP Diastolic 68 mmHg Respiratory Rate 16 /min Body Temperature 98.3 F 03/21/2019 1:30pm Heart Rate 76 /min BP Systolic 132 mmHg BP Diastolic 72 mmHg Respiratory Rate 16 /min Body Temperature 102.1 F Results Description No Information Available Procedures Date Code Description Status 01/21/2019 99518 Laparoscopy, Surgical Repair Initial Inguinal Hernia Completed 01/21/2019 79653 Laparoscopy, Surgical Repair Initial Inguinal Hernia Completed 12/17/2018 56415 ECHO Transthoracic, Real-Time 2D With Doppler And Color Completed Flow 12/06/2018 24801 EKG Tracing & Interpretation Completed Medical Devices Description No Information Available Encounters Type Date Location Provider Dx Diagnosis Office Visit 12/06/2018 Cardiology Services Ranjith Carrillo, Z95.2 Presence of 9:20a Of Nancy AT [facility] prosthetic heart valve Z01.810 Encounter for preprocedural cardiovascular examination K46.9 Unspecified abdominal hernia without obstruction or gangrene Office Visit 11/28/2018 8:30a Surgical Nate Grover, K40.90 [facility], PEDRO hernia, w/o obst or gangr, not spcf as recur R10.32 Left lower quadrant pain Assessments Date Code Description Provider 05/12/2019 R10.32 Left lower quadrant pain Nate Grover MD, FACS 03/21/2019 N50.812 Left testicular pain Nate Grover MD, FACS 01/29/2019 K40.90 Unilateral inguinal hernia, without Carito B. Eckenrode , D[employer]EL SERVICE JOURNEYMAN obstruction or gangrene, 01/29/2019 K41.30 Unilateral femoral hernia, with Carito B. Eckenrode, DIESEL SERVICE JOURNEYMAN obstruction, without gangren 01/29/2019 K42.9 Umbilical hernia without obstruction or Carito B. Eckenrode, DIESEL SERVICE JOURNEYMAN gangrene 01/29/2019 Z48.01 Encounter for change or removal of Carito B. Eckenrode , DIESEL SERVICE JOURNEYMAN surgical wound dressing 01/21/2019 K40.90 Unil inguinal hernia, w/o obst or Carito B. Eckenrode, DIESEL SERVICE JOURNEYMAN gangr, not spcf as recur 01/21/2019 K40.90 Unil inguinal hernia, w/o obst or Nate Grover MD, FACS gangr, not spcf as recur 01/21/2019 K41.30 Unil femoral hernia, w obst, w/o Nate Grover MD, FACS gangrene, not spcf as recur 01/21/2019 K41.30 Unil femoral hernia, w obst, w/o Carito Alla Hayward, DIESEL SERVICE JOURNEYMAN gangrene, not spcf as recur 01/21/2019 K42.9 Umbilical hernia without obstruction or Nate Grover MD, FACS gangrene 01/21/2019 K42.9 Umbilical hernia without obstruction or Carito Hayward, DIESEL SERVICE JOURNEYMAN gangrene 01/07/2019 K40.90 Unilateral inguinal hernia, without Carito Hayward , DIESEL SERVICE JOURNEYMAN obstruction or gangrene, 01/07/2019 Z01.818 Encounter for other preprocedural Carito Hayward , DIESEL SERVICE JOURNEYMAN examination 12/18/2018 K40.90 Unilateral inguinal hernia, without [...] Z01.810 Encounter for preprocedural Ranjith Carrillo DO [facility] cardiovascular examination 12/06/2018 K46.9 Unspecified abdominal hernia without Ranjith Carrillo DO FAC obstruction or gangrene 11/28/2018 K40.90 Unilateral inguinal hernia, without Nate Grover MD, FACS obstruction or gangrene, 11/28/2018 R10.32 Left lower quadrant pain Nate Grover MD, FACS Plan of Treatment Future Appointment(s):06/23/2019 9:00 am - Nate Grover MD, FACS at [facility]05/12/2019 - Nate Grover MD, FACSR10.32 Left lower quadrant painFollow up:4-6 weeks Functional Status Description No Information Available Mental Status Description No Information Available Referrals Refer to Reason for Referral Status Appt Date Ranjith Carrillo DO, FACC Closed 12/06/[address] [place], [place] [id number] [phone]
[2019-05-18 15:19] VITALS: BP 125/80
--- NOTE | 2019-05-18 15:19 | UC ---
Skin Complaint HPI - HPI Summary HPI Summary: 79-year-old male whose removed a tick from his right upper arm today. He thinks there may be a piece of the left in his arm. He is unsure of the length of time it has been embedded however it was not engorged, he thinks it has been embedded less than 24 hours. - History of Current Complaint Time Seen by Provider: 05/18/19 15:08 Stated Complaint: TICK BIT Hx Obtained From: Patient Onset/Duration: Gradual Onset Skin Exposure Onset/Duration: Hours Ago Timing: Constant Onset Severity: Mild Current Severity: Mild Location: Other - Right upper inner arm. Character: Pruritus, Redness Aggravating Factor(s): Nothing Alleviating Factor(s): Nothing Associated Signs & Symptoms: Positive: Negative - Allergy/Home Medications Allergies/Adverse Reactions: Allergies Allergy/AdvReac Type Severity Reaction Status Date / Time No Known Allergies Allergy Verified 05/18/19 15:19 PMH/Surg Hx/FS Hx/Imm Hx Previously Healthy: Yes Other History Of: Hepatitis B Negative For: Anticoagulant Therapy - Surgical History Surgical History: Yes Surgery Procedure, Year, and Place: mitral valve repair 2009;, jayjay coffey. 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 right hand fx, 1994 - Family History Known Family History: Positive: Cardiac Disease - Social History Occupation: Retired Lives: With Family Alcohol Use: Rare Alcohol Amount: social Substance Use Type: None Smoking Status (MU): Former Smoker Amount Used/How Often: 1ppd Length of Time of Smoking/Using Tobacco: 15 yrs When Did the Patient Quit Smoking/Using Tobacco: 1968 Review of Systems All Other Systems Reviewed And Are Negative: Yes Skin: Positive: Rash, Other - Patient has a circular rash surrounding where the tick was removed. Is Patient Immunocompromised?: No Physical Exam Triage Information Reviewed: Yes Appearance: Well-Appearing, No Pain Distress, Well-Nourished Vital Signs Reviewed: Yes Musculoskeletal Exam: Normal Neurological Exam: Normal Psychological Exam: Normal Skin: Positive: Other - The erythematous area on his right upper inner arm is approximately 5.0 cm in diameter. I do not visualize any tick embedded in that area using a magnifying lens. Course/Dx - Course Course Of Treatment: The patient is comfortable here. I do not think the redness associated with a tick bite is erythema migrans I think it's a local reaction to the tick bite. He is given a prescription for doxycycline 200 mg by mouth to take today. He is to follow-up with his primary care provider if any signs of Lyme disease which were reviewed with the patient. - Diagnoses Provider Diagnosis: Tick bite Discharge ED - Sign-Out/Discharge Documenting (check all that apply): Patient Departure All imaging exams completed and their final reports reviewed: No Studies - Discharge Plan Condition: Good Disposition: HOME Prescriptions: DOXYcycline CAP(*) [DOXYcycline 100MG CAP(*)] 200 mg PO ONCE 1 Days #2 cap Patient Education Materials: Tick Bite (ED) Referrals: Vern Alba MD [Primary Care Provider] - Additional Instructions: No dairy products, multivitamins or antacids 2 hours before you take the doxycycline and 2 hours after you take it however take it with food. Definite follow-up with your primary care provider if you develop any fever, chills, body aches or rashes on her body. - Billing Disposition and Condition Condition: GOOD Disposition: Home
== END 2019-05-18 15:28 | disposition home or self-care (01) ==
LOC: UCCORT 15:02
DX: S40.861A Insect bite (nonvenomous) of right upper arm, initial encounter (principal); Z87.891 Personal history of nicotine dependence; W57.XXXA Bitten or stung by nonvenomous insect and other nonvenomous arthropods, initial encounter; Y92.9 Unspecified place or not applicable
CPT/HCPCS: 99212; G0463

== ENCOUNTER 2020-12-21 11:03 | Observation (INO) ==
[~2020-12-21 11:03] MED LIST changes: -Acetaminophen TAB* 325 MG ONE; -Acetaminophen TAB* 325 MG PO ONE; -Acetaminophen TAB* 325 MG PO PRN; +Buffered Lidocaine 1% SYRIN 1 ml INTRADERM ONE; -Buffered Lidocaine 1% SYRIN* 1 ML/SYRINGE INTRADERM ONE; -Bupivacaine 0.25% EPI 200,000* 30 ML SDV ONE; +Dexamethasone IV 4 MG/ML VIAL 1 ml VIAL ONE; -Dexamethasone IV* 4 MG/ML 1 ML (4 MG) ONE; +DiMENhydriNATE IV 50 mg/ml 1 ml VIAL IV PUSH PRN; -DiMENhydriNATE IV* 50 MG/ML VIAL IV PUSH PRN; -EPHEDrine (Pressors)* 50 MG/ML VIAL ONE; -Famotidine IV* 10 MG/ML 2 ML (20 mg) ONE; +Glycopyrrolate IV 0.2 MG/ML 1 ML VIAL ONE; -Glycopyrrolate IV* 0.2 MG/ML 1 ML VIAL ONE; -HYDROcodone/ACETAMIN 5-325 MG* 1 TAB ONE; -HYDROcodone/ACETAMIN 5-325 MG* 1 TAB PO PRN; -Heparin VIAL(*) 5000 UNITS/ML VIAL (FIVE THOUSAND) ONE; -Ketorolac INJ* 30 MG/ML 1 ML VIAL ONE; -Lactated Ringers 1000 ML Bag* 1,000 ML IV SCH; +Lactated Ringers 1000 ml BAG 1,000 ML IV SCH; -Levalbuterol 0.63MG/3ML NEB* UNIT OF USE INH PRN; -Lidocaine 2% PF * 5 ML VIAL ONE; +Lidocaine 2% PF 5 ML VIAL ONE; -Midazolam* 1 MG/ML 2 ML VIAL (2 MG) ONE; +Naloxone 0.4 mg VIAL 0.4 mg/ml 1 ml VIAL IV PRN; -Naloxone* 0.4 MG/ML 1 ML VIAL IV PRN; -Neostigmine Methylsulfate* 3 MG/3 ML SYRINGE ONE; +Ondansetron 4 mg VIAL 2 MG/ML 2 ml VIAL IV PRN; +Ondansetron 4 mg VIAL 2 MG/ML 2 ml VIAL ONE; -Ondansetron INJ* 2 MG/ML VIAL IV PRN; -Ondansetron INJ* 2 MG/ML VIAL ONE; -PROCHLORPERAZINE INJ 5 MG/ML 2 ML VIAL IV PRN; +Phenylephrine IV 10 MG/ML 1 ml VIAL ONE; +Propofol 10 MG/ML 20 ML BTL ONE; -Propofol* 10 MG/ML 20 ML BTL ONE; -Rocuronium* 10 MG/ML VIAL ONE; +ceFAZolin 2 GM PREMIX 2 GM/50 ML BAG ONE; -ceFAZolin 2 GM in NS PREMIX(*) 2 GM/100 ML BAG IVPB ONE; -diPHENhydraMINE IV* 50 MG/ML 1 ml VIAL (BENADRYL) IV PRN; +fentaNYL 100 mcg/2 ml 50 MCG/ML VIAL IV PRN; +fentaNYL 100 mcg/2 ml 50 MCG/ML VIAL ONE; -fentaNYL* 50 MCG/ML 2 ML VIAL (100 MCG VIAL) ONE; +oxyCODONE/Acetamin 5/325 mg TAB PO PRN
[2020-12-21] MEDS ORDERED: Glycopyrrolate IV 0.2 MG/ML 1 ML VIAL ONE ×2 (15:05→15:37)
[2020-12-21] MEDS ORDERED: EPHEDrine (Pressors) 50 MG/ML VIAL ONE (16:06)
[2020-12-21] MEDS ORDERED: diPHENhydraMINE 25 mg TAB PO PRN (16:33)
[2020-12-21] MEDS ORDERED: Lactulose 30 ml UDC PO PRN (16:33)
[2020-12-21] MEDS ORDERED: diPHENhydraMINE IV 50 MG/ML 1 ml VIAL (BENADRYL) IV PRN (16:33)
[2020-12-21] MEDS ORDERED: Magnesium Hydroxide LIQ 30 ML UDC PO PRN (16:33)
[2020-12-21] MEDS ORDERED: Ondansetron 4 mg VIAL 2 MG/ML 2 ml VIAL IV PRN (16:33)
[2020-12-21] MEDS ORDERED: Morphine 2 MG/ML SYRINGE IV PRN (16:33)
[2020-12-21] MEDS ORDERED: Ondansetron ODT 4 mg TAB 4 MG TAB PO PRN (16:33)
[2020-12-21] MEDS ORDERED: Lactated Ringers 1000 ml BAG 1,000 ML IV SCH (17:00)
[2020-12-21] MEDS: Magnesium Hydroxide LIQ 30 ML UDC PO SCH (21:35)
[2020-12-21] MEDS: ceFAZolin 1 GM ADVAN 1 GM in NS 0.9% 50 ML 50 ML IVPB SCH (22:29)
[2020-12-22 05:09] LABS: Hematocrit 36 % (42-52); Hemoglobin 12.7 g/dL (14.0-18.0); Platelet Count 191 10^3/uL (150-450)
[2020-12-22 05:37] LABS: Calcium 8.4 mg/dL (8.6-10.3); EGFR African American 90.1 (>60); EGFR Non-African American 74.5 (>60); Potassium 4.1 mmol/L (3.5-5.0)
[2020-12-22] MEDS: ceFAZolin 1 GM ADVAN 1 GM in NS 0.9% 50 ML 50 ML IVPB SCH ×2 (05:40→14:12)
[2020-12-22] MEDS: Magnesium Hydroxide LIQ 30 ML UDC PO SCH (08:49)
[2020-12-22] MEDS ORDERED: Vitamin THERAPEUTIC TAB PO SCH (09:00)
[2020-12-22 11:27] VITALS: BP 118/70
== END 2020-12-22 15:42 | disposition home or self-care (01) ==
LOC: AA 11:03 → INTOOBSV 11:03 → SSU 18:03
PROVIDERS: ADMIT Orthopaedic Surgery Adult Reconstructive Orthopaedic Surgery; ATTEND Orthopaedic Surgery Adult Reconstructive Orthopaedic Surgery